=== PATIENT | female | born 2000 | race Caucasian/White ===

== ENCOUNTER 2025-01-23 19:11 | Emergency (ER) | payer OTHER, SELFPAY ==
[2025-01-23 19:16] VITALS: BP 180/100
[2025-01-23 19:34] LABS: Urine Character Clear (Clear)
[2025-01-23 19:34] LABS: Hematocrit 44.6 % (37.0-47.0); Hemoglobin 14.9 g/dL (12.0-16.0); Mean Corp Hgb Conc. 33.4 g/dL (33.0-37.0); Mean Corpuscular Volume 92.3 fL (81.0-99.0); Nucleated Red Blood Cells % 0 %; Platelet Count 331 10^3/uL (130-400); Red Cell Dist. Width 12.1 % (11.5-14.5)
[2025-01-23 20:00] LABS: ALT (SGPT) 20 U/L (0-35); AST (SGOT) 21 U/L (14-36); Albumin 5.0 g/dl (3.5-5.0); Alkaline Phosphatase 123 U/L (38-126); Blood Urea Nitrogen 11 mg/dl (7-17); Calcium 10.1 mg/dl (8.4-10.2); Carbon Dioxide 27 mmol/L (22-30); Chloride 105 mmol/L (98-107); Glucose 97 mg/dl (70-99); Potassium 4.9 mmol/L (3.5-5.1); Sodium 139 mmol/L (135-145); Total Protein 8.3 g/dl (6.3-8.2); eGFR > 60.00
--- NOTE | 2025-01-23 20:48 | ED.GENMED ---
History of Present Illness
General
Chief Complaint: Abdominal Pain
Source: patient
Exam Limitations: none
Time Seen by Provider: 01/23/25 20:41
History of Present Illness
History of Present Illness:
See MDM
Past History
Past History
ED Past Medical History: None and Psychiatric (Anxiety, Depression); Negative Asthma, HTN, Hypercholesterolemia or NIDDM
ED Past Surgical History: Cholecystectomy and Tonsilectomy
Social History
Tobacco: Non-smoker
Alcohol: Occasional
Personal: Single
Living: with family
Phy Exam
Physical Exam
Physical Exam:
See MDM
Course
Orders/Labs/Results
Orders:
Orders
01/23/25 19:25
Urine Reflex Culture from [facility] [Urinalysis Reflex To Culture] Urgent
Date Specimen was Collected: 01/23/25
Time Specimen was Collected: 19:21
01/23/25 19:28
Complete Blood Count/With Diff Urgent
Comprehensive Metabolic Panel Urgent
HCG, Serum Qualitative Screen Urgent
Comment: ADD ON
Lipase Urgent
Comment: ADD ON
01/23/25 20:48
CT Abd/pel Without Iv Or Oral Urgent
Comment:
Reason For Exam: R flank pain
Ondansetron Orally Disint [Zofran Odt (Orally Disintegrating)] 4 mg PO NOW STA
01/23/25 20:49
Add On- LAB Urgent
Tests Added?: lipase
01/23/25 21:18
Add On- LAB Urgent
Tests Added?: serum HCG qualitative
Abnormal Lab Results
01/23/25
19:28
Absolute Neuts (auto) 6.6 H 10^3/uL
(1.4-6.5)
Absolute Monos (auto) 1.0 H 10^3/uL
(0.1-0.6)
Total Protein 8.3 H g/dl
(6.3-8.2)
01/23/25 19:28
01/23/25 19:28
Vital Signs
Initial and Last Documented VS:
Initial Vital Signs
Temp Pulse Resp BP Pulse Ox
98.0 F 111 20 180/100 98
01/23/25 19:16 01/23/25 19:16 01/23/25 19:16 01/23/25 19:16 01/23/25 19:16
Last Documented Vital Signs
Temp Pulse Resp BP Pulse Ox
98.0 F 82 15 154/84 98
01/23/25 19:16 01/23/25 21:05 01/23/25 21:05 01/23/25 21:05 01/23/25 21:05
MDM/Problems Addressed
Differential Diagnosis Includes:
Note:
CHIEF COMPLAINT(S)
Abdominal pain with nausea and vomiting.
HISTORY OF PRESENT ILLNESS
The patient is a 24-year-old female presenting with abdominal pain that started in the middle of the night. The pain is primarily located on the side and feels similar to previous gallbladder pain, although it seems to radiate up and down the side.
Patient has since had her gallbladder removed. The patient also experienced nausea and vomited in the waiting room. There is no history of kidney stones or constipation. No urinary issues like burning or frequency were reported, and there was no
shortness of breath. The patient denies any pain radiating to the back. Upon physical examination, there is localized pain under the ribs with no rashes or significant lower abdominal pain noted.
EXTERNAL RECORDS REVIEWED
A previous CT scan from 2002 for appendiceal evaluation was reviewed.
PHYSICAL EXAM
General: Alert, no acute distress. Sitting in bed comfortably
Skin: Warm, dry.
Head: Normocephalic, atraumatic
Neck: Appears supple, trachea midline.
Eyes, Ears, Nose, Mouth, and Throat: Moist mucous membranes
Cardiovascular: No signs of cyanosis
Respiratory: Respirations are non-labored.
Abdomen: Non-distended. Mild point tenderness to right upper quadrant. No rebound
Musculoskeletal: No deformities
Neurological: No focal neurological deficit observed.
Psychiatric: Cooperative, appropriate mood and affect.
PLAN
- Perform CT scan of the abdomen without contrast.
- Add pancreatic enzyme tests to the blood work.
- Administer orally disintegrating anti-nausea tablets.
- Reassess when urine analysis results return.
DIFFERENTIAL DIAGNOSIS
The Differential Diagnosis includes, in no particular order and is not limited to:
- Cholecystitis
- Pancreatitis
- Nephrolithiasis (Kidney stones)
- Gastroenteritis
- Peptic ulcer disease
- Hepatic issues
- Gastroesophageal reflux disease (GERD)
- Appendicitis
- Urinary tract infection
- Biliary colic
SUMMARY OF ENCOUNTER
The patient presented to the emergency department with acute abdominal pain resembling past gallbladder issues, accompanied by nausea and vomiting. Normal blood work was reviewed, and a CT scan of the abdomen is planned to rule out kidney stones or
other potential abdominal issues. Pancreatic enzyme tests were added to rule out pancreatitis. Anti-nausea medication was provided, and the patient declined intravenous therapy in preference of oral medication.
DISPOSITION
Pending further diagnostic imaging and lab results.
MEDICATION RECONCILIATION
- Orally disintegrating anti-nausea tablets were provided to the patient.
MEDICAL DECISION MAKING
- Number and Complexity of Problems Addressed: Chronic conditions affecting care were not applicable as per current information.
- Data:
- Category 1: The following tests and examinations were conducted: Current lab work revealing normal liver and gallbladder function. Pending urine analysis results.
- Category 2: My independent interpretation of past CT scan from 2002 for appendiceal evaluation.
- Risk: Consideration of Admission/Observation was discussed due to the complexity and risk of the presenting complaint and underlying issues. Outpatient management was deemed appropriate with close follow-up based on normal blood work and pending
imaging results.
SUMMARY OF ENCOUNTER
The patient, a 24-year-old female, presented to the emergency department with right upper quadrant abdominal pain. A CT scan was performed to rule out kidney stone pathology but instead showed evidence of likely mesenteric adenitis. The blood work
did not reveal any significant abnormalities. We discussed managing symptoms and recommended a follow-up with primary care for continued evaluation and management.
PLAN
- Provide symptomatic relief with oral anti-nausea medication.
- Reassess symptom progression.
- Recommend follow-up with primary care for ongoing management and monitoring of mesenteric adenitis.
INDEPENDENT REVIEW OF LABS AND INTERPRETATION OF TESTS
- My independent review of the blood work indicates that there are no significant abnormalities.
- My independent interpretation of the CT scan shows evidence of likely mesenteric adenitis.
FOLLOW-UP INSTRUCTIONS
- Please schedule a follow-up visit with your primary care provider as soon as possible to monitor the condition further and adjust treatment if necessary.
MEDICATION RECONCILIATION
- Provided orally disintegrating anti-nausea tablets for symptomatic control.
MEDICAL DECISION MAKING
- Chronic conditions affecting care: None mentioned. Differential Diagnosis includes cholecystitis, pancreatitis, nephrolithiasis (kidney stones), gastroenteritis, peptic ulcer disease, hepatic issues, gastroesophageal reflux disease (GERD),
appendicitis, urinary tract infection, biliary colic.
- Data:
- Category 1: Tests and documents reviewed include blood work showing normal results and a CT scan showing likely mesenteric adenitis.
- Category 2: Independent interpretation of radiology study (CT scan).
- Risk:
- Consideration of Admission/Observation: Escalation of care including admission/observation was considered given the complexity and risk of the patients presenting complaint, exam findings, and/or their underlying comorbidities. However, ultimately
it was determined that the patient is safe for outpatient management with close follow-up. Reasoning: Work-up is reassuring, does not reveal any acute life/organ-threatening processes, patients symptoms well controlled upon reevaluation,
reexamination is reassuring, vitals are stable, patient agreeable with discharge, and reliable for follow-up.
DIAGNOSIS
- Mesenteric adenitis (ICD-10: I88.8)
*Pulse Oximetry
SaO2: 98
Oxygen Mode of Delivery: Room air
Patient hypoxic: no
*Critical Care Note
Total Time (30-74mins, 75-104mins- exclusive of procedures): Not Applicable
ED Attending Note
-
Portions of this chart may have been created with voice recognition software.� Occasional wrong word or��sound alike� substitutions may have occurred due to the inherent limitations of voice recognition software.
Discharge Plan
Departure
Patient Disposition: Home (Routine Discharge)
Date of Disposition: 01/23/25
Time of Disposition: 22:32
Patient with high blood pressure during this ER visit?: Yes
Discharge Problem:
Mesenteric adenitis
Instructions: Mesenteric Lymphadenitis (DC), BLOOD PRESSURE
Prescriptions:
New
ondansetron 4 mg Tablet,Disintegrating
4 mg PO BIDPRN PRN (Reason: nausea/vomiting) Qty: 10 0RF
No Action
ondansetron 4 mg tablet,disintegrating
4 mg PO Q8H PRN (Reason: nausea and vomiting) 1 Days Qty: 3 0RF
dicyclomine 20 mg tablet
20 mg PO TID PRN (Reason: abdominal pain) Qty: 12 0RF
Referrals:
PRIVATE,PHYSICIAN [Family Provider, Internal Medicine]
Activity Restrictions/Additional Instructions:
Please return for any worsening symptoms.
You may return at any time if you have further concerns.
Please follow up with your doctor at the first available appointment, preferably this week.
Thank you for choosing [facility].
Interventions
Interventions:
*Risk Screen - Suicide Last Done: 01/23/25 21:12
*General Assessment Last Done: 01/23/25 19:16
*Neglect/Abuse Screening Last Done: 01/23/25 21:12
*ED- Fall Risk Assessment Last Done: 01/23/25 21:12
*ED COVID-19 Vaccine History Last Done: 01/23/25 21:12
*ED Influenza Vaccine History Last Done: 01/23/25 21:12
VI-Zxsumm-Wmyozsqydp Assessment Last Done: 01/23/25 21:12
Discharge Date and Time
Print Language: HUNGARIAN
[2025-01-23 21:05] VITALS: BP 154/84
[2025-01-23] MEDS: ZOFRAN ODT (ORALLY DISINTEGRATING) 4 MG PO (21:14)
[2025-01-23 21:28] LABS: Lipase 43 U/L (23-300)
[2025-01-23 21:35] LABS: HCG, Serum Qualitative Screen Negative
[2025-01-23] MEDS: TORADOL 30 MG IM (22:47)
== END 2025-01-23 23:02 | disposition home or self-care (01) ==
LOC: EMR 19:11
PROVIDERS: EMERGENCY PHYSICIAN Student in an Organized Health Care Education/Training Program
DX: R10.9 Unspecified abdominal pain (principal); R11.2 Nausea with vomiting, unspecified; I88.0 Nonspecific mesenteric lymphadenitis; R03.0 Elevated blood-pressure reading, without diagnosis of hypertension; F41.9 Anxiety disorder, unspecified; F32.A Depression, unspecified; Z90.49 Acquired absence of other specified parts of digestive tract
CPT/HCPCS: 99284; 96372; 74176; 80053; 81003; 83690; 84703; 85025